=== PATIENT | female | born 1975 | race Caucasian/White ===

== ENCOUNTER 2021-04-25 11:58 | Emergency (ER) | payer MEDICARE ==
[~2021-04-25] VITALS: Ht 167.6 cm; Wt 76.7 kg
[2021-04-25 12:07] VITALS: BP 144/81
--- NOTE | 2021-04-26 10:07 | EKG ---
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: : 1975 Requested By: Ki Chanel Order Number: [id number] MD: Riki Polk Measurements Intervals [place] Rate: 84 P: 85 UT: 156 QRS: 53 QRSD: 110 T: 31 QT: 360 QTc: 426 Interpretive Statements Sinus rhythm Low voltage, precordial leads RSR' in V1 or V2, right VCD or RVH No previous ECG available for comparison Electronically Signed On 04-26-2021 10:06:51 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
== END 2021-04-25 13:22 | disposition left against medical advice (07) ==
LOC: M.ERS 11:58
DX: R06.02 Shortness of breath (principal); Z53.21 Procedure and treatment not carried out due to patient leaving prior to being seen by health care provider